=== PATIENT | male | born 1950 | race Caucasian/White ===

== ENCOUNTER 2024-02-09 10:36 | Outpatient (CLI) | payer MEDICARE, OTHER | END 2024-02-09 10:37 | disposition home or self-care (01) | LOC: CSHMRI 10:36 | PROVIDERS: ATTEND Urology | DX: C61 Malignant neoplasm of prostate (principal) | CPT/HCPCS: 36415; 72197; 82565 ==

== ENCOUNTER 2024-12-23 08:20 | Outpatient (CLI) | payer MEDICARE, OTHER | END 2024-12-23 08:21 | disposition home or self-care (01) | LOC: CSHSLEEP 08:20 | PROVIDERS: ATTEND Family Medicine | DX: G47.33 Obstructive sleep apnea (adult) (pediatric) (principal); R53.83 Other fatigue; E66.9 Obesity, unspecified; Z68.30 Body mass index [BMI] 30.0-30.9, adult; R06.83 Snoring; R09.02 Hypoxemia; G47.10 Hypersomnia, unspecified | CPT/HCPCS: 95810 ==